=== PATIENT | male | born 1995 | race Caucasian/White ===

== ENCOUNTER → 2022-06-14 15:46 | Outpatient (BNVA) | payer MEDICAID, SELFPAY | PROVIDERS: PCP Nurse Practitioner; Visit Provider Nurse Practitioner | DX: Z20.2 Contact with and (suspected) exposure to infections with a predominantly sexual mode of transmission (principal) | CPT/HCPCS: 81000; 86592 ==

== ENCOUNTER → 2022-07-03 14:20 | Outpatient (BNVA) | payer MEDICAID, SELFPAY | PROVIDERS: PCP Nurse Practitioner; Visit Provider Nurse Practitioner | DX: R59.9 Enlarged lymph nodes, unspecified (principal); R63.4 Abnormal weight loss; Z20.2 Contact with and (suspected) exposure to infections with a predominantly sexual mode of transmission | CPT/HCPCS: 80053; 84443; 85025; 87491; 87591 ==